=== PATIENT | male | born 1970 | race Two or more races ===

== ENCOUNTER 2023-09-03 08:55 | Inpatient (IN) | payer MEDICAID ==
[2023-09-01 10:27] LABS: Urine Bacteria None Seen /hpf (None Seen)
[2023-09-01 10:37] LABS: Basophils # (auto) 0 10 ^3/uL (0-0.2); Basophils % (auto) 0.4 % (0.0-2.0); Eosinophils # (auto) 0.1 10 ^3/uL (0-0.8); Eosinophils % (auto) 1.7 % (0.0-7.0); Hematocrit 39.1 % (41.0-53.0); Hemoglobin 13.3 g/dL (13.5-17.5); Lymphocytes # (auto) 1.5 10 ^3/uL (0.4-5.4); Lymphocytes % (auto) 32.8 % (10.0-50.0); Mean Corpuscular Hemoglobin 33.2 pg (28.0-32.0); Mean Corpuscular Hgb Conc. 34.1 g/dL (32.0-36.0); Mean Corpuscular Volume 97.3 fL (80.0-100.0); Monocytes # (auto) 0.5 10 ^3/uL (0-1.3); Monocytes % (auto) 9.7 % (0.0-12.0); Neutrophils # (auto) 2.6 10 ^3/uL (1.6-8.6); Neutrophils % (auto) 55.4 % (37.0-80.0); Nucleated Red Blood Cells % 0.3 %; Red Blood Cells 4.02 10^6/uL (4.5-5.90); Red Cell Distribution Width 12.8 % (11.8-14.3); White Blood Cell 4.7 10^3/uL (4.4-10.8)
[2023-09-01 10:53] LABS: Urine Blood Negative /uL (Negative); Urine Clarity Clear (Clear); Urine Color Yellow (Yellow); Urine Hyaline Cast FEW /lpf (0 - 2); Urine Mucus FEW (None Seen); Urine Protein, UAD TRACE (Negative); Urine Specific Gravity 1.022 (1.001-1.035); Urine Urobilinogen Normal (Negative); Urine WBC 2 /hpf (0 - 3); Urine pH 5.5 (5.0-9.0)
[2023-09-01 11:02] LABS: INR 1.03 (0.9-1.15); Partial Thromboplastin Time 27.6 SEC (24.5-34.5); Prothrombin Time 10.9 sec (9.3-11.8)
[2023-09-01 11:51] LABS: Alanine Aminotransferase 54 U/L (7-40); Albumin 4.6 g/dL (3.2-4.8); Alkaline Phosphatase 105 U/L (46-116); Anion Gap 6 (5-15); Aspartate Aminotransferase 36 U/L (13-40); BUN/Creatinine Ratio 12.4 (10.0-20.0); Blood Urea Nitrogen 12 mg/dL (9-23); Calcium 9.5 mg/dL (8.5-10.1); Carbon Dioxide 26 mmol/L (20-30); Chloride 105 mmol/L (98-107); Glucose 106 mg/dL (74-106); Sodium 137 mmol/L (136-145)
[2023-09-01 11:52] LABS: Bilirubin, Total 3.1 mg/dL (0.2-1.0); Total Protein 7.8 g/dL (5.7-8.2)
[~2023-09-03] VITALS: Ht 175.3 cm; Wt 93.4 kg
[~2023-09-03 08:55] MED LIST: AMLO1TAB23 PO; ASPI81CH59 PO; ATOR40TA52 PO; LABE100T7 PO; LISI20TA56 PO; MERC50TA PO; METH-1214 PO
[2023-09-03] MEDS ORDERED: fentaNYL CITRATE 100 MCG/2 ML VL ONE (09:17)
[2023-09-03] MEDS: ceFAZolin 2 GM/D5W50ml 50 ML IV ONE (09:46)
[2023-09-03] MEDS ORDERED: MEPERIDINE HCL (50 MG/ML) 1 ML VIAL ONE (09:50)
[2023-09-03] MEDS: BUPIVACAINE 0.25% INJ 50ML VIAL ONE (10:12)
[2023-09-03] MEDS: LIDOCAINE W/ EPINEPHRINE 1% 20ML VIAL ONE (10:13)
[2023-09-03 11:18] VITALS: O2SAT 99
[2023-09-03] MEDS ORDERED: PROPOFOL 10 MG/ML 20 ML IV ONE (11:24)
[2023-09-03] MEDS ORDERED: ePHEDrine SULFATE 50 MG/ML AMP ONE (11:24)
[2023-09-03] MEDS ORDERED: MEPERIDINE HCL (25 MG/ML) 1ML VIAL IV PRN ×2 (11:30)
[2023-09-03] MEDS ORDERED: ONDANSETRON HCL 4 MG/2 ML VIAL IV ONE (11:30)
[2023-09-03] MEDS ORDERED: HYDROmorphone HCL 2 MG/ML VL/or syr ONE (11:43)
[2023-09-03] MEDS: HYDROmorphone HCL 2 MG/ML VL/or syr IV PRN ×2 (11:45→16:38)
[2023-09-03] MEDS ORDERED: ONDANSETRON HCL 4 MG/2 ML VIAL IV PRN (12:15)
[2023-09-03] MEDS ORDERED: DOCUSATE SOD 100 MG CAP PO PRN (12:15)
[2023-09-03] MEDS ORDERED: ACETAMINOPHEN 325 MG TAB PO PRN (12:15)
[2023-09-03] MEDS ORDERED: MORPHINE SULFATE INJ 2 MG/ml SYRG IV PRN (12:30)
[2023-09-03] MEDS: ACETAMINOPHEN IV 1000 MG/100ML (10MG/ML) IV PRN (12:30)
[2023-09-03] MEDS ORDERED: NITROGLYCERIN 0.4 MG SL TAB SL PRN (12:30)
[2023-09-03 13:00] VITALS: BP 121/70; PULSE 78; RESP 18; TEMP 98; O2SAT 92
[2023-09-03] MEDS: D5W/SOD CHL 0.45%/KCL 20MEQ 1,000 ML IV SCH (13:20)
[2023-09-03 13:43] VITALS: PULSE 78; RESP 18; O2SAT 92
[2023-09-03] MEDS: ceFAZolin 2 GM/D5W50ml 50 ML IV SCH (14:11)
[2023-09-03 17:00] VITALS: BP 141/79; PULSE 80; RESP 16; TEMP 98.2; O2SAT 93
[2023-09-03 20:00] VITALS: PULSE 90; RESP 18; O2SAT 100
[2023-09-03 21:00] VITALS: BP 131/80; PULSE 95; RESP 18; TEMP 98.1; O2SAT 100
[2023-09-03] MEDS: LISINOPRIL 5 MG TAB PO SCH (21:16)
[2023-09-03] MEDS: LABETALOL HCL 200 MG TAB PO SCH (21:18)
[2023-09-03] MEDS: ATORVASTATIN 20 MG TAB PO SCH (21:18)
[2023-09-03] MEDS: HYDROcodone-ACET 5/325MG TAB PO PRN (21:37)
[2023-09-04] VITALS (8 sets, daily range): BP systolic 104–148; BP diastolic 65–79; PULSE 73–86; RESP 18–20; TEMP 36.7; O2SAT 94–98
[2023-09-04 07:04] LABS: Basophils # (auto) 0 10 ^3/uL (0-0.2); Basophils % (auto) 0.3 % (0.0-2.0); Eosinophils # (auto) 0 10 ^3/uL (0-0.8); Hematocrit 35.1 % (41.0-53.0); Hemoglobin 11.9 g/dL (13.5-17.5); Lymphocytes # (auto) 0.8 10 ^3/uL (0.4-5.4); Lymphocytes % (auto) 6.3 % (10.0-50.0); Mean Corpuscular Hemoglobin 33.9 pg (28.0-32.0); Mean Corpuscular Hgb Conc. 33.9 g/dL (32.0-36.0); Mean Corpuscular Volume 100.1 fL (80.0-100.0); Monocytes # (auto) 0.6 10 ^3/uL (0-1.3); Monocytes % (auto) 5.3 % (0.0-12.0); Neutrophils # (auto) 10.8 10 ^3/uL (1.6-8.6); Neutrophils % (auto) 88.1 % (37.0-80.0); Red Cell Distribution Width 12.8 % (11.8-14.3); White Blood Cell 12.3 10^3/uL (4.4-10.8)
[2023-09-04 07:23] LABS: Alanine Aminotransferase 40 U/L (7-40); Albumin 4.1 g/dL (3.2-4.8); Alkaline Phosphatase 96 U/L (46-116); Anion Gap 4 (5-15); Aspartate Aminotransferase 28 U/L (13-40); BUN/Creatinine Ratio 7.6 (10.0-20.0); Blood Urea Nitrogen 7 mg/dL (9-23); Calcium 9.2 mg/dL (8.5-10.1); Carbon Dioxide 26 mmol/L (20-30); Chloride 104 mmol/L (98-107); Glucose 142 mg/dL (74-106); Potassium 4.5 mmol/L (3.5-5.1); Sodium 134 mmol/L (136-145)
[2023-09-04 07:24] LABS: Bilirubin, Total 2.6 mg/dL (0.2-1.0); Total Protein 6.9 g/dL (5.7-8.2)
[2023-09-04] MEDS: amLODIPine BESYLATE 5 MG TAB PO SCH (09:19)
[2023-09-04] MEDS ORDERED: IBUPROFEN 600 MG TAB PO PRN (11:15)
[2023-09-04] MEDS: PANTOPRAZOLE 40 MG TAB PO ONE (13:57)
[2023-09-04] MEDS: METHADONE HCL 10 MG TAB PO SCH (13:57)
[2023-09-04] MEDS ORDERED: AUG875T PO (14:57)
[2023-09-04 19:27] LABS: Folate (Folic Acid) 10.68 ng/mL (>5.38)
[2023-09-05] MEDS ORDERED: PANTOPRAZOLE 40 MG TAB PO SCH (06:00)
== END 2023-09-04 18:20 | disposition home or self-care (01) | DRG 363 ==
LOC: SUR 08:55 → WEST WING 12:26
PROVIDERS: ADMIT Internal Medicine; ATTEND Surgery
PROC: 0HBV0ZZ Excision of Bilateral Breast, Open Approach (ICD-10-PCS; principal; 2023-09-03 09:46)
DX: N62 Hypertrophy of breast (principal); E78.5 Hyperlipidemia, unspecified; I10 Essential (primary) hypertension; Z88.5 Allergy status to narcotic agent; Z88.2 Allergy status to sulfonamides; Z79.899 Other long term (current) drug therapy
CPT/HCPCS: 36415; 80053; 81001; 82607; 82746; 85025; 85610; 85730; 87081; G0378; J2704; J3490